=== PATIENT | female | born 1980 | race African-American/Black ===

== ENCOUNTER 2019-07-10 04:32 | Observation (INO) | payer SELFPAY ==
[2019-07-10] MEDS ORDERED: Ondansetron ODT 4 MG TAB ONE (04:46)
[2019-07-10 05:22] LABS: #Basophils 0.1 thou/uL (0.0-0.2); #Eosinphils 0.3 thou/uL (0.0-0.7); #Lymphocytes 3.6 thou/uL (1.20-3.40); #Monocytes 0.3 thou/uL (0.11-0.59); #Neutrophils 3.7 thou/uL (1.40-6.50); %Basophils 1.4 % (0.0-1.0); %Eosinophils 3.9 % (0.0-10.0); %Lymphocytes 44.8 % (21.0-51.0); %Monocytes 3.9 % (0.0-10.0); Hemoglobin 14.1 g/dL (12.0-16.0); Mean Corpuscular HGB CONC 32.5 g/dL (32.0-36.0); Mean Corpuscular Hemoglobin 30.8 pg (27.0-31.0); Mean Corpuscular Volume 94.7 fL (78.0-98.0); Mean Platelet Volume 7.2 fL (7.4-10.4); Platelet Count 363 thou/uL (130-400); Red Blood Cell (RBC) Count 4.57 mill/uL (4.20-5.40)
[2019-07-10] MEDS ORDERED: HYDROcodone/Acetaminophen 10/325 mg Tablet ONE ×2 (05:33→10:08)
[2019-07-10] MEDS ORDERED: Lidocaine Viscous Sol 2% 15 ml UD Cup ONE (05:33)
[2019-07-10] MEDS ORDERED: Mag-Al 1200 mg/1200 mg/30 ML UDCUP ONE (05:33)
[2019-07-10 05:45] LABS: ALT (SGPT) 13 U/L (8-55); AST (SGOT) 14 U/L (5-34); Albumin 4.1 g/dL (3.5-5.0); Alkaline Phosphatase 76 U/L (40-150); Anion Gap 12 mmol/L (10-20); BUN (Urea Nitrogen) 23 mg/dL (7.0-18.7); Bilirubin, Total 0.2 mg/dL (0.2-1.2); Calc. Creatinine Clearance 0 mL/min (70-130); Calcium 9.6 mg/dL (7.8-10.44); Carbon Dioxide 19 mmol/L (22-29); Chloride 107 mmol/L (98-107); Estimated GFR-MDRD 68; Globulin 2.9 g/dL (2.4-3.5); Glucose 113 mg/dL (70-105); Lipase 31 U/L (8-78); Potassium 3.3 mmol/L (3.5-5.1); Sodium 135 mmol/L (136-145)
[2019-07-10 06:03] LABS: Pregnancy Test - Urine (BHCG) Negative (Negative); Pregu Control Background? CLEAR/WHITE (CLR/WHITE); Pregu Control Bar Appear? YES (CONTROL BAR)
[2019-07-10 06:07] LABS: Bacteria/HPF None Seen HPF (None Seen); Bilirubin Negative (Negative); Blood, Urine Negative (Negative); Clarity Clear (Clear); Glucose, Urine (Dipstick) Normal (Negative); Leukocyte 75 Leu/uL (Negative); Mucous/LPF Rare LPF (<2+); Nitrite Negative (Negative); Protein, Urine (Dipstick) 30 mg/dL (Neg-Trace); Squamous Epithelial 21-50 HPF (0-3); WBC/HPF 21-50 HPF (0-3)
[2019-07-10 06:22] LABS: RBC/HPF 0-3 HPF (0-3)
[2019-07-10] MEDS ORDERED: Ondansetron PF 4 MG/2 ML Vial ONE (06:45)
[2019-07-10] MEDS ORDERED: Morphine 4 MG/ML VIAL ONE (07:21)
--- NOTE | 2019-07-10 07:35 | ULT ---
GALLBLADDER ULTRASOUND: INDICATION: Right upper quadrant pain. FINDINGS: There is no focal hepatic lesion or acute gallbladder pathology. Keller's sign is reported as negati ve by the surgical physician assistant. The common duct is normal measuring between 3 and 4 mm in diameter. Mild asc ites is present, nonspecific. IMPRESSION: 1. Indeterminate small volume ascites is visualized. Correlate clinically and as necessary followup with dedicated CT imaging may be performed if there is clinical concern for an acute process. 2. No acute gallbladder pathology. POS: KHUSHBUK
--- NOTE | 2019-07-10 07:43 | CT ---
ABDOMEN AND PELVIS CT WITH CONTRAST: INDICATION: Abdominal pain. Indeterminate ascites documented on preceding ultrasound exam. COMPARISON: No prior imaging comparisons otherwise available. FINDINGS: There is marked wall thickening and increased density at multiple loops of small bowel of the mid to lower abdomen. There is fluid content throughout the unopacified colon. No disseminated free air or portal vein gas. There is mild scattered ascites of the abdomen and moderate pelvic ascites. The l iver, spleen, pancreas, kidneys, and adrenal glands are grossly unremarkable. The visualized lung ba ses reveal no significant pathology. There is a presumed hemorrhagic follicle of the right adnexa, a lthough incompletely evaluated. The abdominal aorta is normal in caliber. Osseous structures reveal no acute findings. There is a non-inflamed fat-containing periumbilical hernia. There is mild colo lupis diverticulosis. IMPRESSION: 1. Findings which indicate a diffuse enteritis with prominent wall thickening and increased density of multiple loops of mid to distal small bowel. Recommend clinical correlation in this regard. The bowel is incompletely assessed without the presence of enteric contrast. 2. Associated abdominal and pelvic ascites is present. 3. Presumed hemorrhagic follicle of the right adnexa. Recommend 6-week followup pelvic ultrasound f or continued assessment. CODE T POS: [facility]YLER
[2019-07-10] MEDS ORDERED: Promethazine HCl 25 MG/ML VIAL ONE (08:47)
[2019-07-10] MEDS ORDERED: Ondansetron PF 4 MG/2 ML Vial IVP PRN (11:53)
[2019-07-10] MEDS ORDERED: Ondansetron ODT 4 MG TAB SL PRN (11:53)
[2019-07-10] MEDS ORDERED: Morphine 4 MG/ML VIAL SLOW IVP PRN (11:53)
[2019-07-10 11:55] VITALS: BMI 31.1
[2019-07-10] MEDS: D5 1/2 NS w/20 mEq KCL 1,000 ML IV SCH ×2 (12:33→20:51)
[2019-07-10] MEDS ORDERED: Dextrose 5% in Water 1,000 ML IV PRN (14:14)
[2019-07-10] MEDS ORDERED: Dextrose 50% Abboject 50 ML SYRINGE SLOW IVP PRN (14:14)
[2019-07-10] MEDS ORDERED: HumaLOG 300 UNITS/3 ML VIAL SC PRN ×2 (14:14)
[2019-07-10] MEDS ORDERED: Iopamidol 370 76% 100 ML VIAL ONE (16:23)
[2019-07-10] MEDS: Acetaminophen 325 MG TAB PO PRN (18:06)
--- NOTE | 2019-07-10 18:39 | HP ---
CHIEF COMPLAINT: Presyncope with nausea, vomiting, and diarrhea. HISTORY OF PRESENT ILLNESS: Ms. Fletcher is a 38-year-old woman with a history of diabetes mellitus, who reports labile glucose, hypertension, hyperlipidemia, and history of PA. She presents following a presyncopal episode. The patient states she woke up this morning feeling unwell and broke into a sweat. She decided to take a shower, felt lightheaded. After lying down, she broke into another sweat. She reports feeling lightheaded and as if she was going to faint. She states a friend she is visiting opted to bring her to the hospital once she became lethargic and altered. The patient states she does not think she fainted. Says she could hear her friend speaking, but could not bring herself to get up and felt very drowsy and "out of it." She states she had profuse vomiting on arrival to the emergency department and 3 episodes of watery diarrhea. The patient denies being unwell in recent days. She states she cooked last night and no one else was sick where she was visiting. She states she had lightheadedness followed by GI symptoms when she presented with her previous PA. Reports having cramping in her lower legs. States she also often feels unwell when her glucose is elevated or when she is hypoglycemic even if it is in the 110s. She states that she thought her glucose may have been higher low. Therefore, came into the emergency department for that reason. She was not able to check her glucose before coming in, but on arrival to the emergency department, her glucose was 114. The patient again is feeling somewhat better, but states she is feeling generally unwell. Continues to feel nauseated, but has had no further vomiting. No further diarrhea. Denies any abdominal pain. No chest pain or shortness of breath. REVIEW OF SYSTEMS: All other review of systems are negative. PAST MEDICAL HISTORY: 1. Hypertension. 2. Hyperlipidemia. 3. Diabetes mellitus, labile glucoses. 4. Previous PA. 5. Obesity. PAST SURGICAL HISTORY: Tubal ligation 20 years ago. SOCIAL HISTORY: The patient reports being a smoker, one pack a day, but quit 3 days ago. Reports drinking alcohol last on Wednesday, but states she does not drink daily. Denies any drug use. FAMILY HISTORY: Maternal history includes breast and ovarian cancer as well as hypertension. ALLERGIES: 1. MORPHINE. 2. PENICILLIN. CURRENT MEDICATIONS: 1. Metformin. 2. Metoprolol tartrate. PHYSICAL EXAMINATION: GENERAL: The patient appears generally unwell, but in no acute distress. VITAL SIGNS: Temperature 98, pulse 71, respirations 17, O2 saturation 100% on room air, blood pressure 119/73. HEENT: Normocephalic, atraumatic. Pupils are equal, round, reactive to light. Sclerae without icterus. Oropharynx is clear. NECK: Supple. LUNGS: Clear to auscultation bilaterally. CARDIAC: Regular rate and rhythm. ABDOMEN: Mild diffuse discomfort to palpation, more prominent in the epigastric region. No guarding or rigidity. No renal angle tenderness. EXTREMITIES: She has tenderness with palpation to the bilateral lower extremities and her muscles feel tense. She says she suffers from hypokalemia, which causes muscle cramps. No calf swelling. No edema. NEUROLOGIC: Alert and oriented x3. Power 5/5 in all limbs with sensation intact. SKIN: Without rash or jaundice. LABORATORY DATA: Full blood count unremarkable, platelets 363. Sodium 135, potassium 3.3, chloride 107, anion gap 12, carbon dioxide 19, BUN 23, creatinine 0.91, GFR 68, glucose 113, calcium 9.6, total bilirubin 0.2, AST 14, alkaline phosphatase 76. Albumin 4.1, lipase 31. Urinalysis notable for 30 of protein, trace ketones, 75 leukocyte esterase, white blood cells, squamous epithelial cells, hyaline casts 4 to 6, rare mucus. Negative urine test. Ketones 0.37. IMAGING DATA: Abdominal ultrasound on 07/10/2019, which showed indeterminate small volume ascites. No acute gallbladder pathology. Common bile duct measuring between [address] of the abdomen and pelvis showed findings, which indicate diffuse enteritis with prominent wall thickening and increased density of multiple loops of mid to distal small bowel with associated abdominal and pelvic ascites. Presumed hemorrhagic follicle of the right adnexa. Recommended 6 week followup pelvic ultrasound for continued assessment. IMPRESSION AND PLAN: Ms. Fletcher is a 38-year-old woman, who is being referred for management of the following. 1. Nausea, vomiting, and diarrhea. CT imaging notable for diffuse enteritis. She has had profuse diarrhea after having 2 to 3 episodes of vomiting. We will add on magnesium to her laboratory studies. We will check stool cultures including Clostridium difficile. LFTs unremarkable. We will start the patient on antibiotics with Cipro and Flagyl. If Clostridium difficile is positive, we will discontinue Cipro and we will start p.o. vancomycin. Given the fact that the patient reported similar symptoms when presenting with myocardial infarction in the past, we will rule out acute coronary syndrome as well. Troponins requested. We will obtain a fasting lipid panel and we will also check her TSH. She will be transferred to telemetry for continuous cardiac monitoring. 2. Hypokalemia. Potassium mildly low at 3.3. We will replace and monitor potassium. If further electrolyte disturbances with regard to the magnesium level, we will replace and monitor that as well. 3. Diabetes mellitus. The patient reports labile glucose. Currently, she is receiving D5 half-normal saline with KCl. We will initiate insulin sliding scale and monitor glucose. 4. Hypertension. Resume home medications and monitor blood pressure. 5. Hyperlipidemia. Resume home medications. As mentioned previously, lipid panel to be done with fasting a.m. labs. 6. Deep venous thrombosis prophylaxis. The patient is ambulatory. We will hold off on mechanical SCDs given lower leg cramping. 7. Gastrointestinal prophylaxis. CODE STATUS: Full. Surrogate decision maker is her friend Keegan Ruelas. The patient's case was discussed with Dr. Pineda, who agrees with the plan of care as described above. Job ID: [id number]
[2019-07-10] MEDS: metroNIDAZOLE 500 MG TAB PO SCH (20:52)
[2019-07-10] MEDS ORDERED: metroNIDAZOLE 500 MG TAB PO SCH (21:00)
[2019-07-10] MEDS ORDERED: HYDROcodone/Acetaminophen 7.5/325 mg Tablet PO SCH (23:30)
[2019-07-11] MEDS: D5 1/2 NS w/20 mEq KCL 1,000 ML IV SCH ×2 (00:16→14:58)
[2019-07-11 05:36] LABS: Cardiac Risk 2.6 (Less than 4.5)
[2019-07-11] MEDS: Metoprolol Tartrate 25 MG TAB PO SCH (08:31)
[2019-07-11] MEDS: metroNIDAZOLE 500 MG TAB PO SCH ×3 (08:31→20:37)
[2019-07-11 09:04] LABS: Hemoglobin 10.9 g/dL (12.0-16.0); Mean Corpuscular HGB CONC 34.5 g/dL (32.0-36.0); Mean Corpuscular Volume 95.5 fL (78.0-98.0); Mean Platelet Volume 7.8 fL (7.4-10.4); Platelet Count 271 thou/uL (130-400); RBC Distribution Width 13.2 % (11.5-14.5); Red Blood Cell (RBC) Count 3.29 mill/uL (4.20-5.40); White Blood Cell (WBC) Count 6.4 thou/uL (4.8-10.8)
[2019-07-11 09:29] LABS: ALT (SGPT) 10 U/L (8-55); AST (SGOT) 12 U/L (5-34); Albumin 3.5 g/dL (3.5-5.0); Alkaline Phosphatase 62 U/L (40-150); Anion Gap 13 mmol/L (10-20); BUN (Urea Nitrogen) 8 mg/dL (7.0-18.7); Bilirubin, Total 0.2 mg/dL (0.2-1.2); Calc. Creatinine Clearance 135 mL/min (70-130); Calcium 8.1 mg/dL (7.8-10.44); Carbon Dioxide 18 mmol/L (22-29); Chloride 111 mmol/L (98-107); Estimated GFR-MDRD Greater than 90; Globulin 2.4 g/dL (2.4-3.5); Glucose 99 mg/dL (70-105); Potassium 3.9 mmol/L (3.5-5.1); Protein, Total 5.9 g/dL (6.0-8.3); Sodium 138 mmol/L (136-145)
[2019-07-11 09:44] LABS: Band 1 % (5-11); Eosinophils 9 % (0-10); Lymphocytes 51 % (21-51); MDiff Complete? YES; Monocytes 1 % (0-10); Neutrophil 37 % (42-75); Polychromasia SLIGHT = 2-3 cells (100X) (0-2/hpf); Reactive Lymphocytes 1 % (0-10)
[2019-07-11] MEDS: Acetaminophen 325 MG TAB PO PRN (10:29)
[2019-07-11 14:46] LABS: Hemoglobin 10.8 g/dL (12.0-16.0)
--- NOTE | 2019-07-11 16:46 | PDOC.HOSPP ---
- Subjective Encounter Date: 07/11/19 Encounter Time: 09:30 Subjective: patient states she is feeling better, no longer nauseated, has not had any diarrhea since admission. Abdominal pain has improved. Would like to advance her diet. - Objective Vital Signs & Weight: Vital Signs (12 hours) Temp Pulse Resp BP Pulse Ox 07/11/19 15:15 99.2 F 65 16 113/77 100 07/11/19 12:00 97.6 F 62 18 123/78 100 07/11/19 08:00 97.8 F 60 18 110/59 L 100 Weight Weight 83.779 kg I&O: 07/10/19 07/11/19 07/12/19 06:59 06:59 06:59 Intake Total 1351 100 Output Total 700 200 Balance 651 -100 Result Diagrams: 07/11/19 14:23 07/11/19 08:24 Additional Labs: Accuchecks 07/11/19 07/11/19 07/10/19 10:49 05:18 21:12 POC Glucose 96 103 97 07/10/19 17:00 POC Glucose 118 H ROS - Review of Systems Gastrointestinal: reports: nausea, vomitting, abdominal pain, diarrhea - Medication Medications: Active Medications Generic Name Dose Route Start Last Admin Trade Name Freq PRN Reason Stop Dose Admin Acetaminophen 650 mg 07/10/19 17:33 07/11/19 10:29 Tylenol PO 650 mg Q6H PRN Administration Pain Ciprofloxacin/Dextrose 400 mg/ 200 mls @ 200 mls/hr 07/10/19 21:00 07/11/19 08:31 Device IVPB 200 mls Q12HR JOCELIN Administration Potassium Chloride/Dextrose/Sod Cl 1,000 mls @ 75 mls/hr 07/10/19 23:23 07/11 14:58 D5 1/2 Ns W/20 Meq Kcl IV 1,000 mls .[id number] JOCELIN Administration Metoprolol Tartrate 25 mg 07/11/19 09:00 07/11/19 08:31 Lopressor PO 25 mg DAILY JOCELIN Administration Metronidazole 500 mg 07/10/19 15:04 07/11/19 14:58 Flagyl PO 500 mg TID JOCELIN Administration Ondansetron HCl 4 mg 07/10/19 11:53 07/11/19 00:03 Zofran Odt SL 4 mg Q6H PRN Administration Nausea/Vomiting - Exam Gastrointestinal: soft, normal bowel sounds Gastrointestinal - other findings: mild diffuse tenderness Extremities: no edema Skin: normal turgor Neurological: CN's grossly intact Musculoskeletal: normal tone Psychiatric: normal affect Hosp A/P (1) Abdominal pain Code(s): R10.9 - UNSPECIFIED ABDOMINAL PAIN Status: Acute (2) Nausea & vomiting Code(s): R11.2 - NAUSEA WITH VOMITING, UNSPECIFIED Status: Acute (3) Diarrhea Code(s): R19.7 - DIARRHEA, UNSPECIFIED Status: Acute (4) Colitis Code(s): K52.9 - NONINFECTIVE GASTROENTERITIS AND COLITIS, UNSPECIFIED Status : Acute - Plan continue antibiotics, DVT proph w/SCDs -continue antibiotics, fluids, will consider changing to po antibiotics tomorrow if she tolerates advancing her diet. - serial H&Hs, had initial drop in HGB from yesterday after several liters of fluid. Occult negative for blood. Stool cultures negatives Advance diet as tolerated Recheck labs in am
[2019-07-11] MEDS ORDERED: diphenhydrAMINE 50 MG/ML VIAL IVP SCH (17:30)
[2019-07-11] MEDS ORDERED: Metoclopramide HCl 10 MG/2 ML VIAL IVP SCH (17:30)
[2019-07-11] MEDS: Sodium Chloride 0.9% 1,000 ML IV SCH (17:51)
[2019-07-11 20:17] LABS: Hemoglobin 11.3 g/dL (12.0-16.0)
[2019-07-12 04:40] LABS: #Eosinphils 0.7 thou/uL (0.0-0.7); #Lymphocytes 2.3 thou/uL (1.20-3.40); #Monocytes 0.3 thou/uL (0.11-0.59); #Neutrophils 1.6 thou/uL (1.40-6.50); %Basophils 0.7 % (0.0-1.0); %Eosinophils 14.4 % (0.0-10.0); %Lymphocytes 46.5 % (21.0-51.0); %Monocytes 6.3 % (0.0-10.0); %Neutrophils 32.1 % (42.0-75.0); Hemoglobin 10.8 g/dL (12.0-16.0); Mean Corpuscular HGB CONC 33.6 g/dL (32.0-36.0); Mean Corpuscular Hemoglobin 32.5 pg (27.0-31.0); Mean Corpuscular Volume 96.9 fL (78.0-98.0); Mean Platelet Volume 7.6 fL (7.4-10.4); Platelet Count 284 thou/uL (130-400); RBC Distribution Width 13.1 % (11.5-14.5); Red Blood Cell (RBC) Count 3.32 mill/uL (4.20-5.40); White Blood Cell (WBC) Count 4.9 thou/uL (4.8-10.8)
[2019-07-12 05:03] LABS: ALT (SGPT) 9 U/L (8-55); AST (SGOT) 11 U/L (5-34); Albumin 3.5 g/dL (3.5-5.0); Alkaline Phosphatase 65 U/L (40-150); Anion Gap 10 mmol/L (10-20); BUN (Urea Nitrogen) 9 mg/dL (7.0-18.7); Bilirubin, Total 0.2 mg/dL (0.2-1.2); Calc. Creatinine Clearance 122 mL/min (70-130); Calcium 8.3 mg/dL (7.8-10.44); Carbon Dioxide 23 mmol/L (22-29); Chloride 111 mmol/L (98-107); Estimated GFR-MDRD Greater than 90; Globulin 2.4 g/dL (2.4-3.5); Glucose 102 mg/dL (70-105); Potassium 3.8 mmol/L (3.5-5.1); Protein, Total 5.9 g/dL (6.0-8.3); Sodium 140 mmol/L (136-145)
[2019-07-12] MEDS: Sodium Chloride 0.9% 1,000 ML IV SCH (05:54)
[2019-07-12] MEDS: metroNIDAZOLE 500 MG TAB PO SCH (08:23)
[2019-07-12] MEDS: Metoprolol Tartrate 25 MG TAB PO SCH (08:23)
[2019-07-12 12:15] VITALS: BP 142/75; TEMP 98.6
== END 2019-07-12 13:30 | disposition home or self-care (01) ==
LOC: ERS 04:32 → ERHOLD 07:15 → 3SE 11:47 → 2SW 15:03
PROVIDERS: ADMIT Internal Medicine; ATTEND Internal Medicine
DX: K52.9 Noninfective gastroenteritis and colitis, unspecified (principal); E11.9 Type 2 diabetes mellitus without complications; E87.6 Hypokalemia; I10 Essential (primary) hypertension; E78.5 Hyperlipidemia, unspecified; I25.2 Old myocardial infarction; E66.9 Obesity, unspecified; Z68.33 Body mass index [BMI] 33.0-33.9, adult; Z87.891 Personal history of nicotine dependence; Z88.5 Allergy status to narcotic agent; Z88.0 Allergy status to penicillin; Z79.899 Other long term (current) drug therapy; Z79.84 Long term (current) use of oral hypoglycemic drugs
CPT/HCPCS: 36415; 36416; 74177; 76705; 80053; 80061; 81003; 81015; 81025; 82010; 82274; 83630; 83690; 83735; 83880; 84443; 84484; 85025; 87045; 87046; 87086; 87324; 87328; 87329; 87449; 87899; 96361; 96365; 96366; 96374; 96375; G0378; J0744; J1200; J2270; J2405; J2550; J2765; Q0162; Q9967